=== PATIENT | female | born 1955 | race Caucasian/White ===

== ENCOUNTER 2017-11-12 10:30 | Emergency (ER) | payer OTHER ==
[~2017-11-12] VITALS: Ht 160 cm; Wt 71.7 kg
[~2017-11-12 10:30] MED LIST: ALBUTEROL0.63 MG/3 IH; CALTRATE 600+D1 EACH PO; ECOTRIN81 MG PO; OSTERA TABLET1 EACH PO; PRAVASTATIN SOD20 MG PO; QVAR8.7 G1 IH; SINGULAIR10 MG PO; VIT C-ROSE HIP500 MG PO
== END 2017-11-12 15:44 | disposition home or self-care (01) ==
LOC: ER 10:30
DX: R41.0 Disorientation, unspecified (principal); F41.8 Other specified anxiety disorders